=== PATIENT | female | born 1940 | race Caucasian/White ===

== ENCOUNTER 2016-12-01 06:03 | Inpatient (IN) | payer OTHER ==
[2016-11-16 09:06] LABS: URINE BILIRUBIN NEGATIVE (Negative); URINE BLOOD TRACE (Negative); URINE COLOR YELLOW; URINE GLUCOSE-RANDOM* NEGATIVE (Negative); URINE KETONES NEGATIVE (Negative); URINE LEUKOCYTES-REFLEX NEGATIVE (Negative); URINE PROTEIN (DIPSTICK) NEGATIVE (Negative); URINE UROBILINOGEN 0.2 E.U./dl (0.2-1.0)
[2016-11-16 09:06] LABS: HEMATOCRIT 41.6 % (37.0-47.0); HEMOGLOBIN 13.9 gm/dL (12.0-15.0); MCH 33.3 pg (26.0-34.0); MCHC 33.4 g/dL (28.0-37.0); MCV 99.5 fL (80.0-100.0); RBC 4.18 mil/uL (4.20-5.00); RDW 13.2 % (10.5-14.5); WBC 4.8 thou/uL (4.0-11.0)
[2016-11-16 09:16] LABS: ALBUMIN 3.9 g/dL (3.4-5.0); CALCIUM 9.4 mg/dL (8.5-10.1); CREATININE 0.9 mg/dL (0.6-1.0); POTASSIUM 3.7 mmol/L (3.5-5.1)
[2016-12-01] VITALS (12 sets, daily range): BP systolic 89–109; BP diastolic 47–63
[~2016-12-01] VITALS: Ht 162.6 cm; Wt 60.3 kg
--- NOTE | ~2016-12-01 | O ---
[facility] [place] [address] OPERATIVE REPORT Name: JESSICA LUIS Room #: 538-P ADM IN M.R.#: [id number] Admission: 12/01/16 Attend Phys: Jassi Farias MD Discharge: Date of : 42 Report #: [id number] THIS REPORT FOR: //name// CC: Micky Farias DATE OF SERVICE: 12/01/2016 PREOPERATIVE DIAGNOSIS: Left hip degenerative joint disease, severe. POSTOPERATIVE DIAGNOSIS: Left hip degenerative joint disease, severe. PROCEDURE: Left total hip arthroplasty. SURGEON: Jassi Farias MD. F[employer] GRADE BULL[employer]ZER OPERATOR: JULIANNA Matias. ANESTHETIC: General. INDICATIONS: See hospital H and P. IMPLANTS UTILIZED: We used a Isadora hip system, used a Secur-Fit Max hip stem, 132 degree neck angle, size 8. We used a +7.5 neck length C taper head, 36 outer diameter. We used a Trident acetabular shell 52 mm diameter with a Trident X3 elevated rim insert. DESCRIPTION OF PROCEDURE: After adequate general anesthesia had been obtained, the patient was placed in the lateral decubitus position, left hip up. Left hip and lower extremity was prepped and draped in the usual meticulous sterile fashion. Posterolateral incision was made to the hip, subQ divided sharply. Hemostasis was obtained with electrocautery. The IT band gluteal fascia was then divided. This layer was retracted with a Charnley retractor. Hip was internally rotated. The external rotators were detached at their insertion, tagged, and retracted posteriorly. Capsular incision was made and likewise was tagged and retracted posteriorly. Hip was then dislocated. The starter awl was placed at the base of neck and advanced to the canal. Canal was sequentially reamed to a size 7. Neck osteotomy performed. We then directed our attention to the acetabulum. It was circumferentially exposed. She had significant anterior acetabular osteophytes, which were removed. We removed the labrum, and we then sequentially reamed the acetabulum to a size 50. We got a good press fit with a 50 trial, so we reamed to 51, irrigated copiously and then implanted the shell. We placed the elevator rim liner over the elevated portion posteriorly. [address] [address] OPERATIVE REPORT Name: JESSICA LUIS Room #: 538-P [facility] ..#: [id number] Admission: 12/01/16 Attend Phys: Jassi Farias MD Discharge: Date of : 42 Report #: [id number] Attention was redirected to the femur. It was sequentially broached to a size 7, we had a little instability, so we reamed up to an 8 and then ____ placed at 8 broach which got a good press fit. We trialed her leg with the +7.5, we had the best stability parameters and best reapproximation of her leg lengths. We then removed the trial components, irrigated copiously and implanted the permanent stem and head, the hip was then reduced. We then repaired the capsule, and the external rotators to the trochanter. Drains were placed deep and superficial. Meticulous hemostasis was obtained. IT band gluteal fascia was reapproximated with a combination of interrupted onsdmb-gh-uosio #1 Vicryl, as well as running #1 Tevdek, subq closed with 2-0 Monocryl. Skin closed with chance. Sterile compressive dressing was applied. By: [id number] Jassi Farias MD /nt
[~2016-12-01 06:03] MED LIST: ALEVE220 MG PO; APAP500 PO; ASPIR 8181 MG PO; ATORVASTATIN CA40 MG PO; ATORVASTATIN PO; CLARITIN10 M2 PO; GLUCOSAMINE &1 EACH PO; HYDROCHLOROTHIA25 M2 PO; MOBIC7.5 MG PO; PROBIOTIC1 EAC1 PO; SUPER B COMPLE150 MG PO; ZANTAC 150MG T150 MG PO
[2016-12-02] VITALS (10 sets, daily range): BP systolic 83–106; BP diastolic 42–57
[2016-12-02 05:12] LABS: HEMOGLOBIN 10.5 gm/dL (12.0-15.0); MCH 33.5 pg (26.0-34.0); MCV 98.8 fL (80.0-100.0); RBC 3.14 mil/uL (4.20-5.00); RDW 13.1 % (10.5-14.5); WBC 10.8 thou/uL (4.0-11.0)
[2016-12-02 05:40] LABS: CALCIUM 7.8 mg/dL (8.5-10.1); CREATININE 0.8 mg/dL (0.6-1.0); POTASSIUM 3.4 mmol/L (3.5-5.1)
[2016-12-03 03:45] VITALS: BP 105/55
[2016-12-03 06:11] LABS: HEMATOCRIT 29.3 % (37.0-47.0); MCH 33.7 pg (26.0-34.0); MCHC 34.2 g/dL (28.0-37.0); MCV 98.6 fL (80.0-100.0); RBC 2.97 mil/uL (4.20-5.00); RDW 13.2 % (10.5-14.5); WBC 10.9 thou/uL (4.0-11.0)
[2016-12-03] MEDS ORDERED: XARELTO10 MG PO (06:51)
[2016-12-03] MEDS ORDERED: HYDROCODONE-APA1 TA1 PO ×2 (06:51→08:30)
[2016-12-03 08:19] VITALS: BP 106/56
[2016-12-03] MEDS ORDERED: SENNA8.6 MG PO (08:43)
[2016-12-03] MEDS ORDERED: COLACE100 MG PO (08:43)
[2016-12-03] MEDS ORDERED: MIRALAX17 GM PO (08:43)
[2016-12-03 13:47] VITALS: BP 88/46
[2016-12-03 14:06] VITALS: BP 88/46
== END 2016-12-03 14:15 | disposition home health service (06) | DRG 470 ==
LOC: 5S 06:03 → TBA 06:03 → PRE 08:31 → 5S 15:43
PROVIDERS: Nurse Practitioner Family; Orthopaedic Surgery
PROC: 0SRB0JZ Replacement of Left Hip Joint with Synthetic Substitute, Open Approach (ICD-10-PCS; principal; 2016-12-01)
DX: M16.12 Unilateral primary osteoarthritis, left hip (principal); K59.00 Constipation, unspecified; I10 Essential (primary) hypertension; R12 Heartburn; E78.5 Hyperlipidemia, unspecified; K21.9 Gastro-esophageal reflux disease without esophagitis; Z79.82 Long term (current) use of aspirin; Z79.899 Other long term (current) drug therapy; Z88.0 Allergy status to penicillin; Z88.8 Allergy status to other drugs, medicaments and biological substances; Z90.710 Acquired absence of both cervix and uterus; Z90.49 Acquired absence of other specified parts of digestive tract
CPT/HCPCS: 10785; 50010; 50101; 50382; 50414; 50455; 50612; 50855; 50939; 51412; 51771; 53000; 55388; 56521; 56525; 56527; 56530; 57095; 62110; 62900; 70005